=== PATIENT | female | born 1950 | race Caucasian/White ===

== ENCOUNTER 2020-02-20 10:35 | Day surgery (SDC) | payer MEDICARE, BC ==
[~2020-02-20] VITALS: Ht 170.2 cm; Wt 79.6 kg
[~2020-02-20 10:35] MED LIST: CEFD300C37 PO; WARF4TAB65 PO
[2020-02-20 11:03] VITALS: BP 136/72
[2020-02-20] MEDS ORDERED: COUMADIN PO (11:07)
[2020-02-20] MEDS ORDERED: LIDOCAINE 1%, 20ML ONE (11:09)
[2020-02-20] MEDS ORDERED: SODIUM CHLORIDE 0.9% 1,000 ML IV SCH (11:30)
[2020-02-20] MEDS ORDERED: MIDAZOLAM 1 MG/ML, 5ML ONE (11:33)
[2020-02-20] MEDS ORDERED: NALOXONE 1 MG/ML, 2ML ONE (11:33)
[2020-02-20] MEDS ORDERED: FENTANYL PF 100 MCG/2ML ONE (11:33)
[2020-02-20] MEDS ORDERED: FLUMAZENIL 0.1 MG/1 ML, 5ML ONE (11:33)
[2020-02-20 11:35] LABS: INTERNATIONAL NORMALIZED RATIO 1.08 (0.93-1.1); PROTHROMBIN TIME 11.1 Seconds (9.6-11.5)
[2020-02-20] MEDS ORDERED: OXYcodone 5 MG/5 ML ORAL.SOL UDC ONE (14:09)
[2020-02-20] MEDS ORDERED: ONDANSETRON 2MG/ML, 2ML ONE (14:28)
[2020-02-20] MEDS ORDERED: OXYcodone 5 MG/5 ML ORAL.SOL UDC PO PRN (14:30)
[2020-02-20] MEDS ORDERED: OXYBUTYNIN CHLORIDE 5 MG TABLET PO ONE (16:00)
[2020-02-20] MEDS ORDERED: OPIUM/BELLADONNA SUPP.RECT 16.2-30 MG PR ONE (16:00)
== END 2020-02-20 16:55 | disposition home or self-care (01) ==
LOC: OUT 10:35 → EDSTATUS 12:00 → OUT 16:55
PROVIDERS: ATTEND Urology
DX: N20.0 Calculus of kidney (principal); Z79.01 Long term (current) use of anticoagulants; Z79.82 Long term (current) use of aspirin; Z79.899 Other long term (current) drug therapy; Z72.89 Other problems related to lifestyle
CPT/HCPCS: 36415; 50431; 50433; 85610; 99156; 99157; C1751; C1769; C1894; C2625; J2250; J2405; J3010; J7030; 76000; 76942; J2310

== ENCOUNTER 2020-02-21 05:34 | Observation (INO) | payer MEDICARE, BC ==
[~2020-02-21] VITALS: Ht 170.2 cm; Wt 84.0 kg
[~2020-02-21 05:34] MED LIST changes: +COUMADIN PO
[2020-02-21] MEDS ORDERED: CHLORHEXIDINE 15 ML UDC MM STA (06:39)
[2020-02-21] MEDS ORDERED: FENTANYL PF 250 MCG/5ML ONE (06:51)
[2020-02-21] MEDS ORDERED: MIDAZOLAM 1 MG/ML, 2ML ONE (06:51)
[2020-02-21] MEDS ORDERED: PHENYLEPHRINE 10 MG/ML ONE (06:57)
[2020-02-21] MEDS ORDERED: LACTATED RINGERS 1,000 ML IV SCH (07:06)
[2020-02-21] MEDS ORDERED: HYDROmorphone 1 MG/ML, 1ML INJ IVPush PRN (07:30)
[2020-02-21] MEDS ORDERED: morphine SULFATE 10 MG/ML, 1ML IVPush PRN (07:30)
[2020-02-21] MEDS ORDERED: PROMETHAZINE 25 MG/ML, 1ML IVPush PRN (07:30)
[2020-02-21] MEDS ORDERED: HALOPERIDOL 5 MG/ML IV PRN (07:30)
[2020-02-21] MEDS ORDERED: ACETAMINOPHEN 325 MG TABLET PO PRN (07:30)
[2020-02-21] MEDS ORDERED: hydrALAzine 20 MG/ML, 1ML IV PRN (07:30)
[2020-02-21] MEDS ORDERED: LABETALOL 5MG/ML, 20ML IV PRN (07:30)
[2020-02-21] MEDS ORDERED: MEPERIDINE/PF 25MG/0.5ML IVPush PRN (07:30)
[2020-02-21] MEDS ORDERED: OXYcodone 5 MG/5 ML ORAL.SOL UDC PO PRN (07:30)
[2020-02-21] MEDS ORDERED: ROCURONIUM 10MG/ML,5ML ONE (07:38)
[2020-02-21] MEDS ORDERED: GENTAMICIN 80 MG/2 ML ONE (07:44)
[2020-02-21] MEDS ORDERED: GLYCOPYRROLATE 0.2MG/1ML, 5ML ONE (07:50)
[2020-02-21] MEDS ORDERED: NEOSTIGMINE 1 MG/ML, 10ML ONE (07:50)
[2020-02-21] MEDS ORDERED: PROPOFOL 10 MG/ML, 20ML ONE (07:50)
[2020-02-21] MEDS ORDERED: ONDANSETRON 2MG/ML, 2ML ONE (07:50)
[2020-02-21] MEDS ORDERED: CEFAZOLIN 1,000 MG ONE (07:50)
[2020-02-21] MEDS ORDERED: DEXAMETHASONE 4 MG/ML, 1ML ONE (07:50)
[2020-02-21] MEDS: LACTATED RINGERS 1,000 ML IV SCH ×2 (08:47→16:34)
[2020-02-21] MEDS ORDERED: OMNIPAQUE 350 MG/ML, 50 ML BOTTLE ONE (08:49)
[2020-02-21] MEDS ORDERED: HYDROmorphone 2 MG/ML, 1ML IV PRN (09:00)
[2020-02-21] MEDS ORDERED: ONDANSETRON 2MG/ML, 2ML IV PRN (09:00)
[2020-02-21] MEDS ORDERED: ACETAMINOPHEN 650 MG/20.3 ML UDC ONE (09:22)
[2020-02-21] MEDS ORDERED: OXYcodone 5 MG/5 ML ORAL.SOL UDC ONE (09:22)
[2020-02-21] MEDS ORDERED: FENTANYL PF 100 MCG/2ML ONE (09:22)
[2020-02-21] MEDS: FENTANYL PF 100 MCG/2ML IV PRN ×2 (09:34→09:39)
[2020-02-21] MEDS: CEFDINIR 300 MG CAPSULE PO SCH ×2 (10:43→21:10)
[2020-02-21 13:17] VITALS: BP 120/79
[2020-02-21 19:32] VITALS: BP 123/64
[2020-02-21] MEDS: OXYcodone/APAP 5/325MG TABLET PO PRN (21:10)
[2020-02-22 00:18] VITALS: BP 114/75
[2020-02-22 04:34] VITALS: BP 121/77
[2020-02-22 05:14] LABS: CREATININE 0.88 mg/dL (0.55-1.02)
[2020-02-22 07:21] VITALS: BP 115/80
[2020-02-22] MEDS: CEFDINIR 300 MG CAPSULE PO SCH (08:18)
[2020-02-22] MEDS: LACTATED RINGERS 1,000 ML IV SCH (09:27)
[2020-02-22] MEDS: OXYcodone/APAP 5/325MG TABLET PO PRN (09:56)
[2020-02-22] MEDS ORDERED: OXYC-302 PO (12:12)
[2020-02-22] MEDS ORDERED: CEFD300C37 PO (12:14)
[2020-02-22] MEDS ORDERED: TAMS-11 PO (12:16)
== END 2020-02-22 13:00 | disposition home or self-care (01) ==
LOC: OUT 05:34 → ORIP 08:47 → 4NE 10:05 → OUT 10:30 → 4NE 10:36 → DCLOUNGE 02-22 12:45
PROVIDERS: ADMIT Urology; ATTEND Urology
DX: N20.0 Calculus of kidney (principal); Z20.828 Contact with and (suspected) exposure to other viral communicable diseases; Z86.718 Personal history of other venous thrombosis and embolism
CPT/HCPCS: 36415; 50080; 74425; 82360; 82565; 87635; 88300; 96360; 96361; C1769; C2617; C2625; C2627; G0378; J0690; J1100; J1580; J2250; J2370; J2405; J2704; J2710; J3010; J7120; Q9967